=== PATIENT | male | born 1975 | race African-American/Black ===

== ENCOUNTER 2021-02-26 14:27 | Emergency (ER) | payer SELFPAY ==
[~2021-02-26] VITALS: Ht 165.1 cm; Wt 92.0 kg
[2021-02-26 15:43] LABS: BASOPHILS % 0.8 % (0.0-2.0); EOSINOPHILS % 0.7 % (0.0-5.0); HEMOGLOBIN. 13.8 g/dL (14.0-18.0); LYMPHOCYTES % 30.1 % (20.0-50.0); MEAN CORPUSCULAR HEMOGLOBIN 29.5 pg (28.0-32.0); MEAN CORPUSCULAR VOLUME 89.9 fL (80.0-94.0); MEAN PLATELET VOLUME 12.1 fl (7.4-10.4); MONOCYTES % 5.8 % (2.0-8.0); NEUTROPHILS % 62.6 % (40.0-76.0); PLATELET 177 x1000/uL (130-400); RED BLOOD CELL COUNT 4.67 mill/uL (4.7-6.1); RED CELL DISTRIBUTION WIDTH 13.2 % (11.6-14.6)
[2021-02-26 15:47] LABS: CHLORIDE 108 mEq/L (98-107)
[2021-02-26 15:52] LABS: ETHANOL BLOOD < 10 mg/dL
[2021-02-26 16:14] LABS: *BARBITURATES SCREEN URINE NEGATIVE (NEGATIVE); *BENZODIAZEPINES SCREEN URINE NEGATIVE (NEGATIVE)
[2021-02-26 16:15] LABS: *AMPHETAMINES SCREEN URINE NEGATIVE (NEGATIVE); *COCAINE SCREEN URINE NEGATIVE (NEGATIVE); METHADONE URINE SCREEN NEGATIVE (NEGATIVE); OPIATES URINE SCREEN NEGATIVE (NEGATIVE)
[2021-02-26 16:16] LABS: CANNABINOID URINE SCREEN PRESUMTIVE POSITIVE (NEGATIVE); PHENCYCLIDINE URINE SCREEN NEGATIVE (NEGATIVE)
[2021-02-26] MEDS ORDERED: ACYCLOVIR 400 MG TABLET PO NR (16:45)
[2021-02-26] MEDS ORDERED: PREDNISONE 20MG TABLET PO NR (16:45)
[2021-02-26 17:00] VITALS: BP 124/63
[2021-02-26] MEDS ORDERED: P20 MT (17:42)
[2021-02-26] MEDS ORDERED: ACYC200C MT (17:42)
== END 2021-02-26 18:11 | disposition home or self-care (01) ==
LOC: ER 14:27
DX: G51.0 Bell's palsy (principal); I10 Essential (primary) hypertension; Z72.0 Tobacco use
CPT/HCPCS: 36415; 70450; 71045; 80053; 80305; 80320; 82962; 83880; 84484; 85025; 93005; 99285; J7512; G0480